=== PATIENT | female | born 1975 | race African-American/Black ===

== ENCOUNTER 2020-10-20 23:17 | Emergency (ER) | payer SELFPAY ==
--- OUTSIDE RECORDS SUMMARY | 2020-10-20 23:19 | XMS REPORT | Continuity of Care Document ---
:1975 Author Organization [facility] t Address [address] [place] [address] Care Team Providers Name Role Phone Sarah Perkins MD Attending Clinician [place] Attending Clinician Problems This patient has no known problems. Allergies, Adverse Reactions, Alerts This patient has no known allergies or adverse reactions. Medications This patient has no known medications. Procedures This patient has no known procedures. Encounters Start End Encounter Admission Attending Care Care Encounter Source Date/Time Date/Time Type Type Clinicians Facility Department ID 2020-10-16 2020-10-16 Telephone LUIS DANIEL Perkins [id number] 00:00:00 00:00:00 Luis [facility] [id number] [place] [id number] Faisal [phone] nal [address] 2020-10-12 2020-10-12 Orders SPENCER Garg [id number] 00:00:00 00:00:00 Only Ji ROBERTS [id number] [facility] [id number] 2020-10-10 2020-10-10 Telephone LUIS DANIEL Perkins [id number] 00:00:00 00:00:00 [facility] [id number] [place] [id number] [facility] [phone] nal [address] 2020-10-05 2020-10-05 Telephone MaddieDANIEL [id number] 00:00:00 00:00:00 [facility] [id number] [place] [id number] [facility] [phone] nal [facility] [address] Results This patient has no known results.
[2020-10-21 02:13] LABS: Absolute Lymphocytes (CBC) 0.7 K/uL (0.7-4.9); Basophils % 0.7 % (0-1.3); Hematocrit 40.7 % (36.0-45.0); Lymphocytes % 7.7 % (15.3-44.8); MPV 8.7 fL (7.6-11.3); RBC Red Blood Cell Count 4.54 M/uL (3.86-4.86)
[2020-10-21 02:34] LABS: Albumin 4.5 g/dL (3.4-5.0); Bilirubin Direct 0.1 mg/dL (0-0.2); Bilirubin Total 0.5 mg/dL (0.2-1.0); Potassium 3.6 mmol/L (3.5-5.1); Protein, Total 8.1 g/dL (6.4-8.2)
[2020-10-21] MEDS ORDERED: ONDANSETRON 4 MG/2 ML VIAL ONE ×2 (02:37→06:33)
[2020-10-21] MEDS ORDERED: NA CHLORIDE 0.9% 1,000 ML ONE (02:37)
[2020-10-21] MEDS ORDERED: MORPHINE 4 MG/ML SYR ONE (02:44)
[2020-10-21 03:50] LABS: Urine Blood 2+ (Negative); Urine Glucose Negative (Negative); Urine Protein Negative (Negative)
[2020-10-21 04:42] LABS: Urine Amorphous Sediment 1+ /HPF (NONE SEEN); Urine Bacteria 20-50 /HPF (<20); Urine Mucus 2+ /HPF (NONE SEEN); Urine RBC 20-50 /HPF (NONE SEEN)
[2020-10-21] MEDS ORDERED: KETOROLAC 30 MG/ML INJ ONE (06:33)
--- NOTE | 2020-10-21 06:52 | EDPHYS ---
Physician Documentation [facility] Name: Cherry Guerrier Age: 45 yrs Sex: Female : 1975 Arrival Date: 10/20/2020 Time: 23:20 Bed 24 Private MD: ED Physician Arcadio Guerrier HPI: 10/21 01:45 This 45 yrs old Black Female presents to ER via Ambulatory with complaints of Abdominal cp Pain. 01:45 The patient presents with abdominal pain right upper lateral abdomen. Onset: The cp symptoms/episode began/occurred this morning, and became worse today. The symptoms do not radiate. 01:45 Associated signs and symptoms: Pertinent negatives: chest pain, constipation, diarrhea, cp fever, vomiting. CARETAKER RESORT: 10/20 23:34 No menstruationdepo shot mw Historical: - Allergies: 23:34 No Known Allergies; mw - Home Meds: 23:34 amlodipine 5 mg tab once daily [Active]; mw - PMHx: 23:34 Hypertensive disorder; mw - Immunization history:: Client reports having NOT received the Covid vaccine. - Social history:: Smoking status: Patient denies any tobacco usage or history of. - Coronavirus screen:: The patient has NOT traveled to [place] in the past 14 days. The patient has NOT had contact with known/suspected case of Coronavirus?. ROS: 10/21 01:50 Constitutional: Negative for body aches, chills, fever, poor PO intake. cp 01:50 Eyes: Negative for injury, pain, redness, and discharge. cp 01:50 Abdomen/GI: Positive for abdominal pain, Negative for vomiting, diarrhea, constipation. 01:50 Cardiovascular: Negative for chest pain, edema, palpitations. cp 01:50 ENT: Negative for ear pain, sore throat, difficulty swallowing, difficulty handling cp secretions. 01:50 Back: Negative for radiated pain. 01:50 Neuro: Negative for altered mental status, headache, weakness. 01:50 All other systems are negative. Exam: 01:50 Constitutional: The patient appears in no acute distress, alert, awake, non-toxic, well cp developed, well nourished, uncomfortable. 01:50 Head/Face: Normocephalic, atraumatic. cp 01:50 Eyes: Periorbital structures: appear normal, Conjunctiva: normal, no exudate, no injection, Sclera: no appreciated abnormality, Lids and lashes: appear normal, bilaterally. 01:50 ENT: External ear(s): are unremarkable, Nose: is normal, Mouth: Lips: moist, Oral mucosa: moist, Posterior pharynx: Airway: no evidence of obstruction, patent. 01:50 Chest/axilla: Inspection: normal, Palpation: is normal, no crepitus, no tenderness. 01:50 Cardiovascular: Rate: normal, Rhythm: regular. 01:50 Respiratory: the patient does not display signs of respiratory distress, Respirations: normal, no use of accessory muscles, no retractions, labored breathing, is not present, Breath sounds: are clear throughout, no decreased breath sounds, no stridor, no wheezing. 01:50 Abdomen/GI: Inspection: abdomen appears normal, Bowel sounds: active, all quadrants, Palpation: soft, in all quadrants, moderate abdominal tenderness, in the anterior aspect of right lateral abdomen, rebound tenderness, involuntary guarding, is not appreciated. 01:50 Back: pain, that is moderate, of the right mid back, ROM is painful. 01:50 Skin: no rash present. Vital Signs: 10/20 23:34 BP 144 / 88; Pulse 70; Resp 14; Temp 97.6; Pulse Ox 100% ; mw 10/21 04:30 BP 137 / 81; Pulse 76; Resp 16; Pulse Ox 98% on R/A; jb4 06:15 BP 164 / 95; Pulse 64; Resp 16; Pulse Ox 100% on R/A; jb4 MDM: 01:35 Patient medically screened. cp 03:00 Differential diagnosis: appendicitis, cholecystitis, Cholelithiasis, non-specific abd cp pain, pancreatitis, Pyelonephritis, Ureterolithiasis, urinary tract infection. 04:15 Data reviewed: vital signs, nurses notes, lab test result(s). cp 04:15 Transition of care: After a detail discussion of the patient's case, care is cp transferred to Arcadio Guerrier MD. 10/21 01:45 Order name: Basic Metabolic Panel 10/21 01:45 Order name: CBC with Diff; Complete Time: 02:18 10/21 02:42 Interpretation: Normal except: VIVIAN% 88.7; LYM% 7.7; MN% 2.8. 10/21 01:45 Order name: Hepatic Function; Complete Time: 02:42 cp 10/21 01:45 Order name: Lipase; Complete Time: 02:42 cp 10/21 01:45 Order name: Urine Microscopic Only; Complete Time: 04:44 cp 10/21 01:45 Order name: Basic Metabolic Panel; Complete Time: 02:42 EDMS 10/21 02:42 Interpretation: Normal except: CL 112; GLUC 126; GFR 76. cp 10/21 02:18 Order name: CT Abd/Pelvis - IV Contrast Only cp 10/21 03:50 Order name: Urine Dipstick-Ancillary; Complete Time: 04:08 EDMS 10/21 04:43 Order name: Urine Culture EDMS 10/21 01:45 Order name: IV Saline Lock; Complete Time: 01:54 cp 10/21 01:45 Order name: Labs collected and sent; Complete Time: 01:54 cp Administered Medications: 02:19 Drug: NS 0.9% 1000 ml Route: IV; Rate: 1 bolus; Site: right antecubital; ea 02:19 Drug: Zofran (Ondansetron) 4 mg Route: IVP; Site: right antecubital; ea 02:22 Drug: morphine 4 mg Route: IVP; Site: right antecubital; ea 06:23 Drug: Ketorolac 30 mg Route: IVP; Site: right antecubital; jb4 06:24 Drug: Zofran (Ondansetron) 4 mg Route: IVP; Site: right antecubital; jb4 Disposition: 22:38 Co-signature as Attending Physician, Arcadio Guerrier MD. [facility] Disposition Summary: 10/21/20 06:52 Discharge Ordered Location: Home [facility] Problem: new [facility] Symptoms: have improved [facility] Condition: Stable [facility] Diagnosis - Ureterolithiasis [facility] Followup: [facility] - With: Private Physician - When: 1 - 2 days - Reason: Worsening of condition, Recheck today's complaints, Continuance of care, Re-evaluation by your physician Followup: [facility] - With: Luis Manuel Roman MD - When: 1 - 2 days - Reason: Worsening of condition, Recheck today's complaints Discharge Instructions: - Discharge Summary Sheet [facility] - Kidney Stones, [id number] [facility] Forms: - Medication Reconciliation Form [facility] - Thank You Letter 7 - Antibiotic Education 7 - Prescription Opioid Use 7 - Work release form eb Prescriptions: - Flomax 0.4 mg Oral capsule - take 1 capsule by ORAL route once daily 1/2 hour following the same meal each [facility] day; 7 capsule; Refills: 0, Product Selection Permitted - ketorolac 10 mg Oral tablet - take 1 tablet by ORAL route every 6 hours As needed not to exceed 40 mg in [facility] 24hrs; 12 tablet; Refills: 0, Product Selection Permitted - ondansetron 4 mg Oral tablet,disintegrating - place 1 tablet by TRANSLINGUAL route every 8 hours As needed; 10 tablet; [facility] Refills: 0, Product Selection Permitted - Cipro 500 mg Oral Tablet - take 1 tablet by ORAL route every 12 hours for 7 days; 14 tablet; Refills: 0, [facility] Product Selection Permitted Signatures: Dispatcher [employer] EDModesta Price RN RN Rikki Westbrook PA PA cp Bryson, James, RN RN jb4 Gail Fountain RN RN ea Holmes, Maurice, MD MD [facility]
--- NOTE | 2020-10-21 06:52 | ER ---
Nurse's Notes [facility] Name: Cherry Guerrier Age: 45 yrs Sex: Female : 1975 Arrival Date: 10/20/2020 Time: 23:20 Bed 24 Private MD: Diagnosis: Ureterolithiasis Presentation: 10/20 23:33 Chief complaint: Patient states: Right side abdominal pain since today. Denies emesis. mw Patient crying. Coronavirus screen: At this time, the client does not indicate any symptoms associated with coronavirus-19. Onset of symptoms was October 20, 2020. 23:33 Method Of Arrival: Ambulatory 23:33 Acuity: ROYAL 3 mw Triage Assessment: 23:34 General: Appears uncomfortable, Behavior is crying. Pain: Complains of pain in abdomen mw Pain currently is 10 out of 10 on a pain scale. GI: Reports Pain is 10 out of 10 on a pain scale. SPEECH AND LANGUAGE ASSISTANT: 23:34 No menstruationdepo shot Historical: - Allergies: 23:34 No Known Allergies; mw - Home Meds: 23:34 amlodipine 5 mg tab once daily [Active]; mw - PMHx: 23:34 Hypertensive disorder; mw - Immunization history:: Client reports having NOT received the Covid vaccine. - Social history:: Smoking status: Patient denies any tobacco usage or history of. - Coronavirus screen:: The patient has NOT traveled to [place] in the past 14 days. The patient has NOT had contact with known/suspected case of Coronavirus?. Assessment: 10/21 01:45 General: Appears in no apparent distress. uncomfortable, Behavior is calm, cooperative, jb4 appropriate for age. Pain: Complains of pain in abdomen Pain does not radiate. Pain currently is 9 out of 10 on a pain scale. Neuro: Level of Consciousness is awake, alert, obeys commands, Oriented to person, place, time, situation. Cardiovascular: Patient's skin is warm and dry. Respiratory: Airway is patent Respiratory effort is even, unlabored, Respiratory pattern is regular, symmetrical. GI: Abdomen is flat, non-distended, obese. : No signs and/or symptoms were reported regarding the genitourinary system. EENT: No signs and/or symptoms were reported regarding the EENT system. Derm: Skin is intact, Skin is dry, Skin is normal, Skin temperature is warm. Musculoskeletal: Circulation, motion, and sensation intact. Range of motion: intact in all extremities. 03:00 Reassessment: Patient appears in no apparent distress at this time. Patient and/or jb4 family updated on plan of care and expected duration. Pain level reassessed. Patient is alert, oriented x 3, equal unlabored respirations, skin warm/dry/pink. 04:00 Reassessment: Patient appears in no apparent distress at this time. Patient and/or jb4 family updated on plan of care and expected duration. Pain level reassessed. Patient is alert, oriented x 3, equal unlabored respirations, skin warm/dry/pink. 04:53 Reassessment: Patient appears in no apparent distress at this time. Patient and/or jb4 family updated on plan of care and expected duration. Pain level reassessed. Patient is alert, oriented x 3, equal unlabored respirations, skin warm/dry/pink. Pt reporting an increase in pain, provider notified, no new orders at this time. 06:22 Reassessment: Patient appears in no apparent distress at this time. Patient and/or jb4 family updated on plan of care and expected duration. Pain level reassessed. Patient is alert, oriented x 3, equal unlabored respirations, skin warm/dry/pink. Vital Signs: 10/20 23:34 BP 144 / 88; Pulse 70; Resp 14; Temp 97.6; Pulse Ox 100% ; 10/21 04:30 BP 137 / 81; Pulse 76; Resp 16; Pulse Ox 98% on R/A; jb4 06:15 BP 164 / 95; Pulse 64; Resp 16; Pulse Ox 100% on R/A; jb4 ED Course: 10/20 23:20 Patient arrived in ED. cf2 23:34 Triage completed. mw 23:34 Arm band placed on right wrist. 10/21 01:32 Rikki Saeed PA is PHCP. cp 01:32 Arcadio Guerrier MD is Attending Physician. cp 01:36 Warm blanket given. mw2 01:36 Patient has correct armband on for positive identification. Bed in low position. Call mw2 light in reach. Side rails up X2. 01:48 Panda Dao RN is Primary Nurse. jb4 01:54 Initial lab(s) drawn, by co, sent to lab. Inserted saline lock: 20 gauge in right em antecubital area, using aseptic technique. Blood collected. 04:30 CT Abd/Pelvis - IV Contrast Only In Process Unspecified. EDID 06:51 Luis Manuel Roman MD is Referral Physician. [facility] 07:27 IV discontinued, intact, bleeding controlled, No redness/swelling at site. Pressure tr6 dressing applied. Administered Medications: 02:19 Drug: NS 0.9% 1000 ml Route: IV; Rate: 1 bolus; Site: right antecubital; ea 02:19 Drug: Zofran (Ondansetron) 4 mg Route: IVP; Site: right antecubital; ea 02:22 Drug: morphine 4 mg Route: IVP; Site: right antecubital; ea 06:23 Drug: Ketorolac 30 mg Route: IVP; Site: right antecubital; jb4 06:24 Drug: Zofran (Ondansetron) 4 mg Route: IVP; Site: right antecubital; jb4 Outcome: 06:52 Discharge ordered by . [facility] 07:27 Discharged to home via wheelchair, pt wheeled out by RN to waiting in car tr6 07:27 Condition: stable 07:27 Discharge instructions given to patient, Instructed on discharge instructions, follow up and referral plans. no drinking with medication, medication usage, safety practices, urine strainer, Demonstrated understanding of instructions, follow-up care, medications, Prescriptions given X 4. 07:27 Patient left the ED. tr6 Signatures: Dispatcher [employer] [facility] Modesta William RN RN mw Munoz, Edgar, RN RN em Page, Corey, PA PA cp Bryson, James, RN RN jb4 Gail Fountain RN RN ea Westbrook, MyKena mw2 Gurinder Melendrez 2 Arcadio Guerrier MD MD 7 Yessy Bryant RN RN tr6
[2020-10-21 07:38] VITALS: TEMP 97.6
[2020-10-21 07:41] VITALS: BP 164/95; O2SAT 100
--- NOTE | 2020-10-22 13:09 | RAD REPORT ---
EXAM DESCRIPTION: CT - Abdomen Pelvis W Contrast - 10/21/2020 6:38 am CLINICAL HISTORY: The patient is 45 years old and is Female; right side abdomen pain TECHNIQUE: Axial computed tomography images of the abdomen and pelvis with intravenous contrast. S agittal and coronal reformatted images were created and reviewed. This CT exam was performed using one or more of the following dose reduction techniques: automated exposure control, adjustment of t he mA and/or kV according to patient size, and/or use of iterative reconstruction technique. COMPARISON: No relevant prior studies available. FINDINGS: LUNG BASES: Unremarkable. No mass. No consolidation. ABDOMEN: LIVER: Unremarkable. No mass. GALLBLADDER AND BILE DUCTS: No calcified stones. No ductal dilation. PANCREAS: No ductal dilation. No mass. SPLEEN: Unremarkable. ADRENALS: Unremarkable. No mass. KIDNEYS AND URETERS: Moderate right hydroureteronephrosis is present secondary to a 6 mm distal right ureteral calculus. Edema of the right kidney with perinephric and periureteral stranding is p resent. Mild delayed enhancement of the right kidney is noted. A small cyst within the left kidney ar e present. There is no hydronephrosis or hydroureter of the left kidney. STOMACH AND BOWEL: The stomach is minimally filled with fluid and air. The small bowel is normal in caliber. Stool is present throughout colon. There is no mucosal thickening or evidence of bowel o bstruction. PELVIS: APPENDIX: No findings to suggest acute appendicitis. BLADDER: Unremarkable. No mass. REPRODUCTIVE: Unremarkable as visualized. ABDOMEN and PELVIS: INTRAPERITONEAL SPACE: Trace free fluid is present within the pelvis which is likely physiologic . No free air. BONES/JOINTS: Minimal degenerative change at L5-S1 is present. SOFT TISSUES: The soft tissues are normal. VASCULATURE: Unremarkable. No abdominal aortic aneurysm. LYMPH NODES: Unremarkable. No enlarged lymph nodes. IMPRESSION: Moderate right hydroureteronephrosis is present secondary to a 6 mm distal right uretera l calculus. Electronically signed by: Madhuri Mead MD 10/21/2020 5:35 AM CDT Due to temporary technical issues with the PACS/Fluency reporting system, reports are being signed by the in house radiologist without review as a courtesy to ensure prompt reporting. The interpreting r adiologist is fully responsible for the content of the report.
== END 2020-10-21 07:27 | disposition home or self-care (01) ==
LOC: ER 23:17
DX: N20.1 Calculus of ureter (principal); I10 Essential (primary) hypertension
CPT/HCPCS: 36415; 74177; 80048; 80076; 81003; 81015; 83690; 85025; 87086; 87088; 96374; 96375; 99284; J2405; J7030; Q9967